=== PATIENT | male | born 1990 | race Caucasian/White ===

== ENCOUNTER 2020-05-15 15:13 | Emergency (ER) | payer SELFPAY ==
[~2020-05-15] VITALS: Ht 175.3 cm; Wt 68.9 kg
[2020-05-15 16:08] VITALS: BP 131/92
--- NOTE | 2020-05-15 16:23 | NUR ---
PT TO XRAY VIA WHEELCHAIR
--- NOTE | 2020-05-15 17:21 | NUR ---
29 Y/O MALE FROM HOME C/O POOR APPETITE X 20 YEARS. STATES HE FEELS PRESSURE IN HIS CHEST AND ABD WHEN EATING. DENIES N/V/D. RR EVEN AND UNLABORED. DENIES SOB. HAS NOT SEEN SPECIALIST FOR APPETITE PROB. VSS MEDHX: DENIES
--- NOTE | 2020-05-15 17:23 | NUR ---
PT AMBULATED TO RESTROOM FOR COLLECTION OF URINE
--- NOTE | 2020-05-15 17:51 | NUR ---
SCARLETT BAPTISTE AT BEDSIDE EXAMINING PT
[2020-05-15 18:17] VITALS: BP 131/92
--- NOTE | 2020-05-15 18:17 | NUR ---
Patient discharged with v/s stable. Written and verbal after care instructions given and explained. Patient alert, oriented and verbalized understanding of instructions. Ambulatory with steady gait. All questions addressed prior to discharge. ID band removed. Patient advised to follow up with PMD. Rx of MECLIZINE 25MG AND ZOFRAN 4MG given. Patient educated on indication of medication including possible reaction and side effects. Opportunity to ask questions provided and answered.
== END 2020-05-15 18:17 | disposition home or self-care (01) ==
LOC: MED 15:13
DX: R63.0 Anorexia (principal); R11.0 Nausea; R10.13 Epigastric pain
CPT/HCPCS: 71045; 81002; 93005; 99283

== ENCOUNTER 2020-09-01 10:07 | Day surgery (SDC) | payer MEDICAID ==
[~2020-09-01] VITALS: Ht 175.3 cm; Wt 52.2 kg
[2020-09-01] MEDS ORDERED: MIDAZOLAM 2 MG/2 ML VIAL ONE ×2 (12:57→13:02)
[2020-09-01] MEDS ORDERED: fentaNYL citrate 0.05 MG/ML VIAL ONE (13:00)
[2020-09-01] MEDS ORDERED: MIDAZOLAM 2 MG/2 ML VIAL IVP ONE (15:05)
== END 2020-09-01 14:15 | disposition home or self-care (01) ==
LOC: MDS 10:07 → MMU 10:57 → MDS 14:15
PROVIDERS: ATTEND Internal Medicine Gastroenterology
DX: R13.10 Dysphagia, unspecified (principal); R10.13 Epigastric pain; K44.9 Diaphragmatic hernia without obstruction or gangrene
CPT/HCPCS: 36415; 43239; 86677; J2250; J3010